=== PATIENT | female | born 1985 | race Caucasian/White ===

== ENCOUNTER 2016-07-27 11:43 | Inpatient (IN) | payer OTHER ==
[~2016-07-27] VITALS: Ht 162.6 cm; Wt 58.5 kg
--- NOTE | 2016-07-27 12:03 | NUR ---
PT AMBULATORY TO BED T2A FROM TRIAGE C/O RIGHT SIDED FLANK PAIN RADIATING TO R LOWER BACK X4 DAYS, WORSENING WITH NAUSEA AND CONSTIPATION, PT DENIES ANY UTI SYMPTOMS. PT DESCRIBES PAIN "IT FEELS LIKE A DOG KEEPS BITING ME." PT A/O X4, EPISODES RESTLESSNESS AND PT GUARDING RIGHT SIDE OF ABDOMEN, RESPS EVEN AND UNLABORED, ABDOMEN SOFT/FLAT, TENDER TO RIGHT SIDE, SKIN WARM/DRY TO TOUCH, NO S/S OF DISTRESS NOTED. PT GOWNED, AWAITING MSE.
--- NOTE | 2016-07-27 12:13 | NUR ---
DR. YUSUF AT BEDSIDE FOR MSE.
[2016-07-27 12:18] LABS: UA SPECIFIC GRAVITY <=1.005 (1.005-1.035); microscopic required? YES; urine erythrocyte 2+ (NEGATIVE)
--- NOTE | 2016-07-27 12:20 | NUR ---
LAB AT BEDSIDE FOR BLOOD DRAW.
[2016-07-27 12:49] LABS: BASOPHIL % 0.1 % (0-2); PLATELET COUNT 269 x10^3mcL (130-400); RED CELL DISTRIBUTION WIDTH 12.4 % (11.5-14.5)
--- NOTE | 2016-07-27 12:52 | NUR ---
MAGDIEL YUSUF FOR PELVIC EXAM. SPECIMENS COLLECTED AND SENT TO LAB. PT REPORTS HAVING UNPROTECTED SEX WITH A PARTNER THAT POSSIBLEY HAS HEP C 2 WEEKS AGO.
--- NOTE | 2016-07-27 13:10 | NUR ---
REPORT GIVEN TO CHELA FONTANA.
[2016-07-27 13:22] LABS: T3 TOTAL 0.76 ng/mL
[2016-07-27 13:23] LABS: CK-MB < 0.5 ng/mL (0-3.6); CREATINE KINASE 54 U/L (26-192)
[2016-07-27 13:24] LABS: FREE T4 0.87 ng/dL (0.76-1.46); FREE THYROXINE INDEX 2.3 ug/dL (1.4-4.5); T4(THYROXINE) 7.1 ug/dL (4.7-13.3)
--- NOTE | 2016-07-27 13:25 | NUR ---
PT TAKEN TO ULTRASOUND VIA WHEELCHAIR BY TECH. PT IN NO DISTRESS.
[2016-07-27 13:46] LABS: ALBUMIN 3.5 g/dL (3.4-5.0); ALKALINE PHOSPHATASE 78 U/L (46-116); ALT/SGPT 18 U/L (14-59); AST/SGOT 13 U/L (15-37); BILIRUBIN TOTAL 0.6 mg/dL (0.20-1.00); CALCIUM 8.9 mg/dL (8.5-10.1); CARBON DIOXIDE 23.9 mmol/L (21-32); CHLORIDE SERUM 98 mmol/L (98-107); CREATININE SERUM 0.8 mg/dL (0.6-1.0); GFR1 > 60 mL/min; GLUCOSE SERUM 65 mg/dL (74-106); SODIUM SERUM 135 mmol/L (136-145); TOTAL PROTEIN, SERUM 7.6 g/dL (6.4-8.2)
[2016-07-27 13:48] LABS: ERYTHROCYTE SED RATE 34 mm/hr (0-20)
[2016-07-27 13:49] LABS: POTASSIUM SERUM 2.8 mmol/L (3.5-5.1)
--- NOTE | 2016-07-27 14:10 | NUR ---
RETURNED FROM US VIA . NAD NOTED
[2016-07-27 14:16] LABS: AMPHETAMINE QUAL UR POSITIVE (NEG <=1000)
[2016-07-27 15:34] VITALS: BP 142/107
--- NOTE | 2016-07-27 15:45 | NUR ---
RECEIVED PATIENT FROM ED VIA GUERNEY, PATIENT C/O PAIN TO R FLANK AND WILL MEDICATE ORDERED, PATIENT ORIENTED BUT IS DROWSY, ORIENTED PATIENT TO ROOM AND SURROUNDINGS, BED IN LOW POSITION, BED RAILS UP X 2, CALL LIGHT WITHIN REACH, WILL ENDORSE CARE TO LUCAS FONTANA
--- NOTE | 2016-07-27 16:00 | NUR ---
PATIENT AWAKE, ALERT, STATES SHE HAS PAIN 8/10 TO ABDOMEN, WILL MEDICATE PRN (SEE EMAR). ALL SAFETY MEASURES IN PLACE, WILL CONTINUE TO MONITOR.
[2016-07-27 16:41] LABS: CHOLESTEROL/HDL RATIO 1.9; MAGNESIUM 2.3 mg/dL (1.8-2.4); PHOSPHOROUS 2.6 mg/dL (2.5-4.9)
[2016-07-27 18:11] LABS: CALCIUM 7.5 mg/dL (8.5-10.1); CHLORIDE SERUM 101 mmol/L (98-107); CREATININE SERUM 0.8 mg/dL (0.6-1.0); GFR1 > 60 mL/min; GLUCOSE SERUM 175 mg/dL (74-106); POTASSIUM SERUM 3.6 mmol/L (3.5-5.1); SODIUM SERUM 134 mmol/L (136-145)
--- NOTE | 2016-07-27 19:10 | NUR ---
BEDSIDE REPORT GIVEN TO NOC SHIFT NURSE AT THIS TIME. PATIENT ASLEEP, NO SIGNS OF DISTRESS NOTED, EASILY AROUSED VIA VERBAL STIMULI, DROWSY, WILL ENDORSE CARE.
[2016-07-27 19:20] VITALS: BP 91/55
--- NOTE | 2016-07-27 19:20 | NUR ---
RECEIVED PT IN BED SLEEPING AND SHE RESPONDS APPROPRIATELY TO VERBAL STIMULI. NO C/O HEADACHE AND DIZZINESS. NO SOB NOTED. BOWEL SOUNDS ACTIVE. SHE HAS NO C/O PAIN AT THIS TIME. W/ IVF NS AT 100 CC/HR VIA LTAC. CALL LIGHT W/IN REACH.
--- NOTE | 2016-07-27 21:45 | NUR ---
RENAL ULTRASOUND IN PROGRESS.
[2016-07-27 22:08] VITALS: BP 107/69
--- NOTE | 2016-07-27 22:25 | NUR ---
PT SEEN BY DR. CHAZ PRASAD.
--- NOTE | 2016-07-28 05:22 | NUR ---
PT SLEPT AT LONG INTERVALS. SHE HAD NO C/O PAIN . NO EPISODE OF N/V. SHE AMBULATES TO RESTROOM W/ MINIMAL ASSISTANCE. IVF NS AT 100 CC/HR INFUSING WELL VIA LTAC.
[2016-07-28 05:46] VITALS: BP 105/71
[2016-07-28 06:29] LABS: CALCIUM 7.5 mg/dL (8.5-10.1); CARBON DIOXIDE 25.7 mmol/L (21-32); CHLORIDE SERUM 103 mmol/L (98-107); CREATININE SERUM 0.8 mg/dL (0.6-1.0); GFR1 > 60 mL/min; GLUCOSE SERUM 95 mg/dL (74-106); POTASSIUM SERUM 4.3 mmol/L (3.5-5.1); SODIUM SERUM 136 mmol/L (136-145)
[2016-07-28 06:35] LABS: ALBUMIN 2.3 g/dL (3.4-5.0); BASOPHIL % 0.2 % (0-2); PLATELET COUNT 232 x10^3mcL (130-400); RED CELL DISTRIBUTION WIDTH 13.1 % (11.5-14.5)
[2016-07-28 07:15] VITALS: BP 108/65
--- NOTE | 2016-07-28 07:15 | NUR ---
RECEIVED PT. IN BED A/A/O X4. NO SOB, NO N/V NOTED. DENIES ANY PAIN AT THIS TIME. NS RUNNING AT 100 CC/HR. VIA IV H/L AT L AC. PT. STATED SHE IS 8 WEEKS . SCD TO BLE MAINTAINED. BED IN LOW POS., CALL LIGHT WITHIN REACH. SIDE RAILS UP X3.
--- NOTE | 2016-07-28 08:43 | NUR ---
DR. SUAREZ, THE RESIDENTS, CHARGE NURSE, AND ATTENDING NURSE AT BEDSIDE. CAREPLAN DISCUSSED WITH PT. ALL QUESTIONS ANSWERED.
[2016-07-28 09:45] VITALS: BP 116/75
[2016-07-28 13:30] VITALS: BP 108/76
--- NOTE | 2016-07-28 16:45 | NUR ---
DR. GUNN (DO ALTERNATIVE FINANCING SPECIALIST) WAS MADE AWARE THAT PT.'S LAST BM WAS ON 07/23/16; ORDERS FOR MILK OF MAGNESIA PRN AND DULCOLAX PRN RECEIVED.
[2016-07-28 17:10] VITALS: BP 111/75
--- NOTE | 2016-07-28 17:24 | NUR ---
REMAINS IN STABLE CONDITION AT THIS TIME. NO ACUTE DISTRESS NOTED. PO PRN MILK OF MAGNESIA GIVEN FOR CONSTIPATION.
--- NOTE | 2016-07-28 19:40 | NUR ---
RECEIVED PT IN BED AWAKE AND JUST AMBULATED FROM RESTROOM. PT STATED SHE JUST HAD A LARGE BM. PT'S MOTHER AT BEDSIDE VISITING. PT IS ALERT,ORIENTED X4. NO SOB ON RA. W/ ACTIVE BOWEL SOUNDS. SHE HAS NO C/O PAIN AT THIS TIME. W/ IVF NS AT 100 CC/HR VIA LTAC. CALL LIGHT W/IN REACH.
[2016-07-28 20:42] VITALS: BP 110/66
--- NOTE | 2016-07-29 02:00 | NUR ---
PT AWAKE AT THIS TIME AND REQUESTED FOR SNACKS. PT GIVEN APPLE JUICE, JELLO AND JESSICA CRACKERS.
--- NOTE | 2016-07-29 05:32 | NUR ---
PT SLEPT AT LONG INTERVALS. SHE HAD NO C/O PAIN. NO N/V. SHE HAD BM X1 THIS SHIFT. W/ IVF NS AT 100 CC/HR INFUSING VIA LTAC.
[2016-07-29 05:38] VITALS: BP 107/62
[2016-07-29 06:15] LABS: BASOPHIL % 0.4 % (0-2); PLATELET COUNT 240 x10^3mcL (130-400); RED CELL DISTRIBUTION WIDTH 12.8 % (11.5-14.5)
[2016-07-29 06:51] LABS: CALCIUM 8.4 mg/dL (8.5-10.1); CARBON DIOXIDE 25.9 mmol/L (21-32); CHLORIDE SERUM 104 mmol/L (98-107); CREATININE SERUM 0.7 mg/dL (0.6-1.0); GFR1 > 60 mL/min; GLUCOSE SERUM 88 mg/dL (74-106); MAGNESIUM 1.6 mg/dL (1.8-2.4); PHOSPHOROUS 3.3 mg/dL (2.5-4.9); SODIUM SERUM 137 mmol/L (136-145)
--- NOTE | 2016-07-29 08:00 | NUR ---
AWAKE AND ALERT. TELE #2 SINUS RHYTHM RATE 76. RESP 18 EVEN. BREATH SOUNDS CLEAR. ABD SOFT BOWEL TONES PRESENT. LBM=5-9-17. VOIDING QS. REPORTS "SOME BURNING WHEN STARTS TO URINATE BUT THEN IT GETS BETTER." NO EDEMA. PULSES PRESENT. SCD IN PLACE. IV PATENT LAC INFUSING NORMAL SALINE 100CC/HR. SIDE RAILS UP X2. CALL LIGHT IN REACH.
[2016-07-29] MEDS ORDERED: LAC PO ×2 (08:12→10:22)
[2016-07-29] MEDS ORDERED: MAC100 PO ×3 (08:12→10:22)
--- NOTE | 2016-07-29 08:40 | NUR ---
DR CASTILLO AND MEDICAL TEAM IN ON ROUNDS. CHARGE AND PRIMARY NURSE PRESENT. DISCUSSED UTI AND PLAN FOR DISCHARGE HOME TODAY. PT VERBALIZED UNDERSTANDING.
[2016-07-29 09:21] VITALS: BP 106/73
[2016-07-29] MEDS ORDERED: CLEOCIN HCL300 MG PO (09:49)
--- NOTE | 2016-07-29 10:34 | NUR ---
DR GONSALES IN TO SPEAK WITH PT AND REVIEW MEDICATIONS FOR DISCHARGE AND FOLLOWUP WITH DR Cooper PRASAD. PT REPORTS "LOST MY WALLET BEFORE I CAME TO HOSPITAL. CAN I STILL GET MY MEDS." DR GONSALES REVIEWED RX WERE SENT ELECTRONICALLY AND WILL BE READY TODAY. PT HAS MEDI-CRISTIN. PT REPORTS "WILL CHECK IF THEY HAVE MY MEDI-CRISTIN CARD ON FILE THERE TO PICK THEM UP." IV CONVERTED TO SALINE LOCK. TO CALL FAMILY TO COME PICK HER UP.
[2016-07-29 10:36] VITALS: BP 106/73
--- NOTE | 2016-07-29 11:12 | NUR ---
REVIEWED DISCHARGE INFORMATION, DR NICHOLAS FOLLOWUP APPTS. PT VERBALIZED UNDERSTANDING. REVIEWED NEED FOR MG, ON VIT. PT DECLINED MEDICATION. TELE REMOVED AND RETURNED TO TELE UNIT. IV REMOVED CATH TIP INTACT. ARMBANDS REMOVED. PT TAKEN VIA WHEELCHAIR TO PRIVATE CAR WITH BELONGINGS. MOTHER HERE TO PICK HER UP.
--- NOTE | 2016-07-29 11:20 | NUR ---
LAB CALLED WITH URINE CULTURE E COLI, MDRO, ESBL. DR GONSALES HERE AND MADE AWARE. STATES "[facility] WILL COVER THOSE ORGANISIMS." NO FURTHER MEDS NEEDED AT THIS TIME.
== END 2016-07-29 11:15 | disposition home or self-care (01) | DRG 566 ==
LOC: ED 11:43 → DU 14:33
PROVIDERS: Family Medicine; Specialist; ADMIT Family Medicine
DX: O23.01 Infections of kidney in pregnancy, first trimester (principal); N17.0 Acute kidney failure with tubular necrosis; E43 Unspecified severe protein-calorie malnutrition; O26.831 Pregnancy related renal disease, first trimester; B18.2 Chronic viral hepatitis C; O23.591 Infection of other part of genital tract in pregnancy, first trimester; Z3A.01 Less than 8 weeks gestation of pregnancy; E87.6 Hypokalemia; R31.9 Hematuria, unspecified; Z68.22 Body mass index [BMI] 22.0-22.9, adult; Z87.891 Personal history of nicotine dependence; F15.10 Other stimulant abuse, uncomplicated
CPT/HCPCS: 80307; 83880; 84439; 87491; 87591; G0480; J0690; J0696; J3475; J3480; J3490; J7030; Q0092

== ENCOUNTER 2016-10-30 22:14 | Emergency (ER) | payer OTHER ==
[~2016-10-30 22:14] MED LIST: CLEOCIN HCL300 MG PO; LAC PO; MAC100 PO
[2016-10-31 00:02] LABS: BASOPHIL % 0.4 % (0-2); PLATELET COUNT 259 x10^3mcL (130-400); RED CELL DISTRIBUTION WIDTH 13.3 % (11.5-14.5)
[2016-10-31 00:18] LABS: CALCIUM 8.5 mg/dL (8.5-10.1); CHLORIDE SERUM 99 mmol/L (98-107); CREATININE SERUM 0.9 mg/dL (0.6-1.0); GFR1 > 60 mL/min; GLUCOSE SERUM 119 mg/dL (74-106); POTASSIUM SERUM 3.1 mmol/L (3.5-5.1); SODIUM SERUM 132 mmol/L (136-145)
[2016-10-31 00:23] LABS: CK-MB < 0.5 ng/mL (0-3.6); CREATINE KINASE 73 U/L (26-192)
[2016-10-31 00:29] LABS: ALKALINE PHOSPHATASE 92 U/L (46-116); ALT/SGPT 20 U/L (14-59); AST/SGOT 21 U/L (15-37); BILIRUBIN TOTAL 0.4 mg/dL (0.20-1.00); TOTAL PROTEIN, SERUM 7.2 g/dL (6.4-8.2)
[2016-10-31 02:16] LABS: UA SPECIFIC GRAVITY 1.015 (1.005-1.035); microscopic required? YES; urine erythrocyte 2+ (NEGATIVE)
[2016-10-31 02:32] VITALS: BP 137/79
== END 2016-10-31 02:32 | disposition home or self-care (01) ==
LOC: ED 22:14
PROVIDERS: Emergency Medicine
DX: O03.1 Delayed or excessive hemorrhage following incomplete spontaneous abortion (principal)
CPT/HCPCS: 83880; J0696; J1885; J7030; Q0092

== ENCOUNTER 2016-11-04 20:37 | Emergency (ER) | payer OTHER ==
[~2016-11-04] VITALS: Ht 162.6 cm; Wt 54.9 kg
[2016-11-04 23:04] VITALS: BP 144/88
== END 2016-11-04 23:04 | disposition home or self-care (01) ==
LOC: ED 20:37
DX: R10.9 Unspecified abdominal pain (principal); R50.9 Fever, unspecified

== ENCOUNTER 2017-01-01 20:15 | Emergency (ER) | payer OTHER ==
[2017-01-01 23:13] VITALS: BP 122/84
== END 2017-01-01 23:13 | disposition home or self-care (01) ==
LOC: ED 20:15
DX: N76.0 Acute vaginitis (principal); B96.89 Other specified bacterial agents as the cause of diseases classified elsewhere
CPT/HCPCS: 87491; 87591

== ENCOUNTER 2017-07-05 16:23 | Emergency (ER) | payer OTHER ==
[~2017-07-05] VITALS: Ht 162.6 cm; Wt 54.4 kg
[2017-07-05 16:28] VITALS: BP 112/66; Ht 162.6 cm; Wt 54.4 kg
== END 2017-07-05 17:37 | disposition home or self-care (01) ==
LOC: ED 16:23
DX: S51.811A Laceration without foreign body of right forearm, initial encounter (principal); S61.411A Laceration without foreign body of right hand, initial encounter; Z88.1 Allergy status to other antibiotic agents; Z71.6 Tobacco abuse counseling; W22.8XXA Striking against or struck by other objects, initial encounter; Y93.89 Activity, other specified; Y92.89 Other specified places as the place of occurrence of the external cause; Y99.8 Other external cause status
CPT/HCPCS: 99406

== ENCOUNTER 2017-07-08 13:06 | Emergency (ER) | payer OTHER ==
[~2017-07-08] VITALS: Ht 162.6 cm; Wt 54.4 kg
[2017-07-08 13:15] VITALS: Ht 162.6 cm; Wt 54.4 kg
[2017-07-08 14:59] VITALS: BP 126/86
== END 2017-07-08 14:59 | disposition home or self-care (01) ==
LOC: ED 13:06
DX: S51.811D Laceration without foreign body of right forearm, subsequent encounter (principal); W26.9XXD Contact with unspecified sharp object(s), subsequent encounter
CPT/HCPCS: A4570

== ENCOUNTER 2017-07-16 14:17 | Emergency (ER) | payer MEDICAID ==
[~2017-07-16] VITALS: Ht 152.4 cm; Wt 56.2 kg
[2017-07-16 14:36] VITALS: BP 141/100
== END 2017-07-16 15:20 | disposition home or self-care (01) ==
LOC: ED 14:17
DX: S51.811D Laceration without foreign body of right forearm, subsequent encounter (principal); S61.411D Laceration without foreign body of right hand, subsequent encounter; Z88.1 Allergy status to other antibiotic agents; Z88.2 Allergy status to sulfonamides; X58.XXXD Exposure to other specified factors, subsequent encounter

== ENCOUNTER 2017-11-06 22:26 | Emergency (ER) | payer OTHER ==
[~2017-11-06] VITALS: Ht 162.6 cm; Wt 54.0 kg
[2017-11-06 22:59] VITALS: Ht 162.6 cm; Wt 54.0 kg
[2017-11-07 00:10] VITALS: BP 137/98
== END 2017-11-07 00:10 | disposition home or self-care (01) ==
LOC: ED 22:26
DX: S20.211A Contusion of right front wall of thorax, initial encounter (principal); N39.0 Urinary tract infection, site not specified; R03.0 Elevated blood-pressure reading, without diagnosis of hypertension; Z88.2 Allergy status to sulfonamides; W18.39XA Other fall on same level, initial encounter; Y93.89 Activity, other specified; Y92.89 Other specified places as the place of occurrence of the external cause; Y99.8 Other external cause status

== ENCOUNTER 2018-02-13 19:52 | Emergency (ER) | payer OTHER ==
[2018-02-13 20:01] VITALS: Ht 152.4 cm
[2018-02-13 21:28] VITALS: BP 144/99
== END 2018-02-13 21:29 | disposition home or self-care (01) ==
LOC: ED 19:52
DX: R30.0 Dysuria (principal); R10.32 Left lower quadrant pain; Z88.2 Allergy status to sulfonamides
CPT/HCPCS: 87491; 87591

== ENCOUNTER 2018-04-04 22:23 | Emergency (ER) | payer OTHER ==
[~2018-04-04] VITALS: Ht 162.6 cm; Wt 56.7 kg
[2018-04-04 22:35] VITALS: Ht 162.6 cm; Wt 56.7 kg
[2018-04-04 23:07] LABS: BASOPHIL % 0.6 % (0-2); PLATELET COUNT 362 x10^3mcL (130-400); RED CELL DISTRIBUTION WIDTH 12.8 % (11.5-14.5)
[2018-04-04 23:18] LABS: CALCIUM 8.6 mg/dL (8.5-10.1); CHLORIDE SERUM 102 mmol/L (98-107); GFR1 > 60 mL/min; GLUCOSE SERUM 104 mg/dL (74-106); POTASSIUM SERUM 4.1 mmol/L (3.5-5.1); SODIUM SERUM 140 mmol/L (136-145)
[2018-04-04 23:23] LABS: ALBUMIN 3.7 g/dL (3.4-5.0); ALKALINE PHOSPHATASE 76 U/L (46-116); ALT/SGPT 3 U/L (14-59); AST/SGOT 21 U/L (15-37); BILIRUBIN TOTAL 0.21 mg/dL (0.20-1.00); TOTAL PROTEIN, SERUM 7.7 g/dL (6.4-8.2)
[2018-04-05 02:06] VITALS: BP 138/80
== END 2018-04-05 02:06 | disposition home or self-care (01) ==
LOC: ED 22:23
PROVIDERS: Emergency Medicine
DX: N30.00 Acute cystitis without hematuria (principal); K52.9 Noninfective gastroenteritis and colitis, unspecified; Z88.2 Allergy status to sulfonamides
CPT/HCPCS: 36415; 87491; 87591; J0696

== ENCOUNTER 2018-06-11 23:28 | Emergency (ER) | payer OTHER ==
[~2018-06-11] VITALS: Ht 162.6 cm; Wt 56.2 kg
[2018-06-11 23:33] VITALS: Ht 162.6 cm; Wt 56.2 kg
[2018-06-12 01:15] VITALS: BP 141/105
== END 2018-06-12 01:15 | disposition home or self-care (01) ==
LOC: ED 23:28
DX: N39.0 Urinary tract infection, site not specified (principal); Z88.2 Allergy status to sulfonamides

== ENCOUNTER 2018-09-10 01:38 | Emergency (ER) | payer OTHER ==
[~2018-09-10] VITALS: Ht 162.6 cm; Wt 52.6 kg
[2018-09-10 01:46] VITALS: Ht 162.6 cm; Wt 52.6 kg
[2018-09-10 03:08] VITALS: BP 122/83
== END 2018-09-10 03:08 | disposition home or self-care (01) ==
LOC: ED 01:38
DX: S61.411A Laceration without foreign body of right hand, initial encounter (principal); N39.0 Urinary tract infection, site not specified; W26.0XXA Contact with knife, initial encounter; Y93.89 Activity, other specified; Y92.89 Other specified places as the place of occurrence of the external cause; Y99.8 Other external cause status
CPT/HCPCS: J2001

== ENCOUNTER 2019-02-03 23:09 | Emergency (ER) | payer OTHER ==
[~2019-02-03] VITALS: Ht 162.6 cm; Wt 54.4 kg
[2019-02-03 23:16] VITALS: Ht 162.6 cm; Wt 54.4 kg
[2019-02-04 00:39] VITALS: BP 119/87
== END 2019-02-04 00:39 | disposition home or self-care (01) ==
LOC: ED 23:09
DX: T20.17XA Burn of first degree of neck, initial encounter (principal); T31.0 Burns involving less than 10% of body surface; Z88.1 Allergy status to other antibiotic agents; Z88.2 Allergy status to sulfonamides; X11.8XXA Contact with other hot tap-water, initial encounter; Y93.89 Activity, other specified; Y92.89 Other specified places as the place of occurrence of the external cause; Y99.8 Other external cause status

== ENCOUNTER 2019-02-16 12:52 | Emergency (ER) | payer OTHER ==
[~2019-02-16] VITALS: Ht 165.1 cm; Wt 55.8 kg
[2019-02-16 13:00] VITALS: Ht 165.1 cm; Wt 55.8 kg
[2019-02-16 14:06] LABS: BASOPHIL % 0.3 % (0-2); PLATELET COUNT 283 x10^3mcL (130-400); RED CELL DISTRIBUTION WIDTH 12.6 % (11.5-14.5)
[2019-02-16 14:16] LABS: CALCIUM 8.1 mg/dL (8.5-10.1); CARBON DIOXIDE 27.6 mmol/L (21-32); CHLORIDE SERUM 104 mmol/L (98-107); CREATININE SERUM 0.9 mg/dL (0.6-1.0); GFR1 > 60 mL/min; GLUCOSE SERUM 99 mg/dL (74-106); POTASSIUM SERUM 3.7 mmol/L (3.5-5.1); SODIUM SERUM 140 mmol/L (136-145)
[2019-02-16 14:23] LABS: ALKALINE PHOSPHATASE 88 U/L (46-116); ALT/SGPT 17 U/L (14-59); AST/SGOT 18 U/L (15-37); BILIRUBIN TOTAL 0.4 mg/dL (0.20-1.00); TOTAL PROTEIN, SERUM 6.8 g/dL (6.4-8.2)
[2019-02-16 14:24] LABS: ALBUMIN 3.1 g/dL (3.4-5.0)
[2019-02-16 17:42] VITALS: BP 139/100
== END 2019-02-16 17:45 | disposition home or self-care (01) ==
LOC: ED 12:52
PROVIDERS: Student in an Organized Health Care Education/Training Program
DX: N12 Tubulo-interstitial nephritis, not specified as acute or chronic (principal); R30.0 Dysuria; R10.32 Left lower quadrant pain; R00.0 Tachycardia, unspecified; Z88.2 Allergy status to sulfonamides; Z88.1 Allergy status to other antibiotic agents
CPT/HCPCS: J0696; J1885; J2270; J2405; J7030; J7060; Q9967

== ENCOUNTER 2019-02-23 17:29 | Emergency (ER) | payer OTHER ==
[~2019-02-23] VITALS: Ht 162.6 cm; Wt 55.3 kg
[2019-02-23 17:53] VITALS: Ht 162.6 cm; Wt 55.3 kg
[2019-02-23 18:41] LABS: microscopic required? YES; urine erythrocyte NEGATIVE (NEGATIVE)
[2019-02-23 18:51] LABS: BASOPHIL % 0.6 % (0-2); PLATELET COUNT 469 x10^3mcL (130-400); RED CELL DISTRIBUTION WIDTH 12.5 % (11.5-14.5)
[2019-02-23 18:54] LABS: CALCIUM 8.3 mg/dL (8.5-10.1); CARBON DIOXIDE 29.9 mmol/L (21-32); CHLORIDE SERUM 104 mmol/L (98-107); CREATININE SERUM 0.8 mg/dL (0.6-1.0); GFR1 > 60 mL/min; GLUCOSE SERUM 69 mg/dL (74-106); SODIUM SERUM 142 mmol/L (136-145)
[2019-02-23 18:57] LABS: ALKALINE PHOSPHATASE 91 U/L (46-116); ALT/SGPT 29 U/L (14-59); AST/SGOT 19 U/L (15-37); BILIRUBIN TOTAL 0.3 mg/dL (0.20-1.00); TOTAL PROTEIN, SERUM 7.2 g/dL (6.4-8.2)
[2019-02-23 19:02] LABS: ALBUMIN 3.2 g/dL (3.4-5.0)
[2019-02-23 20:01] VITALS: BP 112/78
== END 2019-02-23 20:01 | disposition home or self-care (01) ==
LOC: ED 17:29
PROVIDERS: Emergency Medicine
DX: N94.10 Unspecified dyspareunia (principal); N39.0 Urinary tract infection, site not specified; Z88.1 Allergy status to other antibiotic agents; Z88.2 Allergy status to sulfonamides
CPT/HCPCS: 36415

== ENCOUNTER 2019-06-15 22:37 | Emergency (ER) | payer OTHER ==
[~2019-06-15] VITALS: Ht 162.6 cm; Wt 54.4 kg
[2019-06-15 23:01] VITALS: Ht 162.6 cm; Wt 54.4 kg
[2019-06-16 01:07] VITALS: BP 126/88
== END 2019-06-16 01:07 | disposition home or self-care (01) ==
LOC: ED 22:37
DX: G43.909 Migraine, unspecified, not intractable, without status migrainosus (principal); F45.8 Other somatoform disorders; Z88.1 Allergy status to other antibiotic agents; Z88.2 Allergy status to sulfonamides
CPT/HCPCS: J0780; J1885; Q0092